=== PATIENT | female | born 1955 | race Caucasian/White ===

== ENCOUNTER 2016-06-18 09:03 | Day surgery (SDC) | payer OTHER ==
[~2016-06-18] VITALS: Ht 152.4 cm; Wt 70.7 kg
[~2016-06-18 09:03] MED LIST: BUSP15TA3 PO; CeFAZolin Inj 2 GM in IV Premix 1 EACH IV ONE; GABA800T2 PO; HYDR12.55 PO; IBUP800T28 PO; OXYC1TAB24 PO; PROG100C6 PO; PROP60CA2 PO; TRAM50TA2 PO; ZOLP10TA5 PO
[2016-06-18] MEDS ORDERED: fentaNYL-PF 50 mCg/mL 2 mL Inj ONE (09:04)
[2016-06-18] MEDS ORDERED: Ketamine 10 mg/mL 20 mL Inj ONE (09:04)
[2016-06-18] MEDS ORDERED: Propofol 10,000 mCg/mL 20 mL Inj ONE (09:04)
[2016-06-18] MEDS: Lactated Ringer's 1,000 ML IV SCH ×2 (09:41→09:46)
--- NOTE | 2016-06-18 09:41 | PCM.HPANE ---
Patient Data Date of Service: June 18, 2016 Surgeon Admitting Provider: Attending Provider:Jennifer Oh DPM Primary Care Physician:Tono Tomlinson PA-C Other Provider:Fam Shipman Anesthesia Reason for Visit Left Foot Exostosis Of Toe, Ganglion Cyst Ht/WT & BMI Height (Feet): 5 Weight (Kilograms): 68.49 Body Mass Index 29.00 Allergies Coded Allergies: latex (Verified Allergy, Unknown, 06/14/16) lithium (Verified Allergy, Unknown, blackouts, 06/14/16) Uncoded Allergies: EGGS (Allergy, Unknown, 06/14/16) Past Anesthesia History Anesthesia History: Denies:: Abnormal Airway, Anesthesia Reactions, Difficult Intubation, Fam Anesthesia Reaction Diabetes History Hx Diabetes?: No MRSA MRSA: Yes (18 years ago cervix after of child) Medications Hypertension Medication: Yes Home Meds Incl Beta Valentin: Yes (takes BP meds on a prn basis) Date Beta Valentin Taken: June 14, 2016 Previous Beta Valentin Dose >24: Dose Not Given, Contraindicated Beta Valentin Contraindicated: Other (takes prn, last dose >72h) Reported Medications oxyCODONE-Acetaminophen 5-325 mg 1 Each Tablet1-2 Tab PO Q4H PRN For Pain Ref 0 06/14/16 Zolpidem 10 Mg Xpejlh10 Mg PO HS PRN For Insomnia Ref 0 06/14/16 Tramadol 50 Mg Soepey021 Mg PO Q4H PRN For Pain Ref 0 06/14/16 Propranolol ER 60 Mg Cap.[id number] Mg PO DAILY PRN blood pressure 06/14/16 Progesterone,Micronized (Progesterone)100 Mg [id number] Mg PO DAILY 06/14/16 Ibuprofen 800 Mg Amgiba213 Mg PO TID PRN For Pain Ref 0 06/14/16 Hydrochlorothiazide 12.5 Mg Cdpwda53.5 Mg PO DAILY PRN blood pressure 30 Days Ref 0 06/14/16 Gabapentin 800 Mg Tablet4,000 Mg PO DAILY Ref 0 06/14/16 Buspirone 15 Mg Ijmzjp10 Mg PO BID Ref 0 06/14/16 Discontinued Reported Medications Eszopiclone (Lunesta)Unknown Strength TabletUnknown Dose PO HS PRN Insomnia 04/02/15 Estradiol Unknown Strength TabletUnknown Dose PO DAILY Ref 0 04/02/15 Progesterone,Micronized (Progesterone)Unknown Strength CapsuleUnknown Dose PO 2/21/16 Levothyroxine 100 Mcg Jqidje893 Mcg PO DAILY For Thyroid Replacement Ref 0 04/02/15 Tramadol 50 Mg Gqymbf16 Mg PO QID PRN For Pain Ref 0 04/02/15 Gabapentin Enacarbil (Horizant)600 Mg Tablet.er600 Mg PO DAILY 04/02/15 Discontinued Scripts oxyCODONE-Acetaminophen 5-325 mg 1 Each Tablet1-2 Tab PO Q6H PRN For Pain #25 TABLET Ref 0 Prov:Seng Esquivel MD 04/02/15 History History of ENT Problems?: No HEENT History: Denies:: Abnormal Airway Cataracts Difficult Intubation Dysphagia Glaucoma Hearing Problem Sinus Problem TMJ Denture Type: None Teeth Condition: Within Normal Limits Other HEENT Pertinent History: dental implant- post in place- no crown yet- Hx of Heart Problems?: Yes Cardiovascular History: Positive for:: Hypertension Denies:: Congestive Heart Failure Hx of Respiratory Problem?: Yes Respiratory History: Positive for:: Pneumonia (pneumonia last year ) Use of C-PAP Machine Denies:: Asthma COPD Emphysema Oxygen Administration Tuberculosis Hx Neurologic Problems?: Yes Neurological History: Positive for:: Headaches Denies:: Alzheimer's Disease CVA Dementia Dizziness Multiple Sclerosis Parkinson's Disease Seizures TIA Hx of GI Problems?: No Hx of Problems?: No Genitourinary History: Denies:: Kidney Stones Urinary Tract Infection Female Hx: Denies:: Currently (post menopausal) Skin History: Positive for:: History Skin Disorders? (hx of eduardo bilateral feet at age 5) Denies:: Pressure Ulcers Hx Musculoskeletal Problems?: Yes Musculoskeletal History: Positive for:: Fibromyalgia Musculoskeletal Trauma (left foot current admission problem) Denies:: Degenerative Joint Joint Replacement Myasthenia Gravis Systemic Lupus Hx of Psycho/Social Problems?: Yes Psycho Social History: Positive for:: Anxiety Bipolar Disorder Hx Depression Hx Surgeries?: Yes (c-sections; feet reconstruction, breast augmentation) Hx Any Other Health Problems?: Yes Other History: Denies:: Cancer Thyroid Disease History Blood Transfusions: Positive for:: Accept Blood Products? Blood Transfusions (after endometriosis bleed 20 years ago) Denies:: Blood Transfuse Reaction Hx Diabetes: No Hx Alcohol Use: No (former)Hx Substance Use: No Smoking Status: Unknown if Ever Smoker Have You Smoked inLast 12 mo: No Stop/Bang S-Snoring: Do You Snore Loudly: No T-Tired: feel tired, fatigued: No O-Obsered: Observed not breath: No P-Blood Pressure: treated: Yes B- Body Mass Index > 35 kg/m2: No A- Age over 50: Yes N- Neck Large Circumference: No G- Gender Male: No NATASHA Total Score: 2 NATASHA Risk Assessment: Low Risk, <3 Yes Risk Assessment Category Category 1A: Patient has history of documented sleep apnea, and HAS NOT received any narcotic, sedative or anesthesia administration during this stay. Category 1B: Patient has history of documented sleep apnea, and HAS received any narcotic , sedative or anesthesia administration during this stay Category 2: Patient has SUSPECTED Obstructive Sleep Apnea, and HAS received any narcotic , sedative or anesthesia administration during this stay. Category 3: Patient has SUSPECTED Obstructive Sleep Apnea and HAS NOT received narcotic, sedative or anesthesia administration during this stay. Category 4: Outpatient in Procedural Areas with known sleep apnea or who screen positive for High Risk via the STOP/BANG questionnaire. Exam Exam General Appearance: Alert, Oriented X3, Cooperative, No Acute Distress HEENT/AIRWAY: MP 2 Lungs: Clear to Auscultation, Normal Air Movement Heart: Exam Unremarkable, Regular Rate/Rhythm, No Murmurs/Rubs/Gallops Plan Impression Patient chart reviewed, patient interviewed and anesthestic plan with risks, benefits, and alternatives discussed, and informed consent obtained. NPO per Anesth. Guidelines: Yes ASA Physical Status: ASA2 Mod Systemic Disease Anesthetic Plan: MAC Bene/Risks/Altern/Consents: Yes HP Complete Prior to Induction: Yes Nolan Tsang MD June 18, 2016 09:41
[2016-06-18 09:44] VITALS: BP 160/80; PULSE 82; RESP 16; O2SAT 100
[2016-06-18] MEDS ORDERED: Lactated Ringer's 500 ML IV PRN (10:06)
[2016-06-18] MEDS ORDERED: Lactated Ringer's 1,000 ML IV SCH (10:06)
[2016-06-18] MEDS ORDERED: fentaNYL-PF 50 mCg/mL 2 mL Inj IVPUSH PRN (10:10)
[2016-06-18] MEDS ORDERED: Dexamethasone 4 mg/mL Inj IVPUSH PRN (10:10)
[2016-06-18] MEDS ORDERED: Phenylephrine 10,000 mCg/mL Inj IVPUSH PRN (10:10)
[2016-06-18] MEDS ORDERED: MetoCLOpramide 5 mg/mL 2 mL Inj IVPUSH PRN (10:10)
[2016-06-18] MEDS ORDERED: hydrALAZINE 20 mg/mL Inj IVPUSH PRN (10:10)
[2016-06-18] MEDS ORDERED: EPHEDrine Sulfate 50 mg/mL Inj IVPUSH PRN (10:10)
[2016-06-18] MEDS ORDERED: Atropine 0.4 mg/mL Inj IVPUSH PRN (10:10)
[2016-06-18] MEDS ORDERED: Ondansetron 2 mg/mL 2 mL Inj IVPUSH PRN (10:10)
[2016-06-18] MEDS ORDERED: Labetalol 5 mg/mL 4 mL Inj IV PRN (10:10)
[2016-06-18] MEDS ORDERED: HYDROmorphone 1 mg/mL Inj IVPUSH PRN (10:10)
[2016-06-18 10:40] VITALS: BP 161/83; PULSE 74; O2SAT 99
--- NOTE | 2016-06-18 10:46 | PCM.ANEP1 ---
Post Anesthesia Phase 1 PACU Phase 1 Assessment Date of Service: June 18, 2016 Vital Signs 36 161/83 73 18 99% ra Anesthetic Administered: MAC Level of Alertness: Awake, talking AUSTIN's with Equal Strength: Yes Pain: No Nausea or Vomiting: No Oxygen Delivery: Room Air Lungs: Clear to Auscultation, Normal Air Movement Complications: No Follow up Care: No Patient Instructions Provided: Yes Nolan Tsang MD June 18, 2016 10:46
[2016-06-18] MEDS ORDERED: OXYC1TAB24 PO (11:01)
[2016-06-18] MEDS ORDERED: oxyCODONE-Acetamin 5-325 mg Tablet PO PRN (11:05)
[2016-06-18 11:10] VITALS: BP 160/76; PULSE 63; O2SAT 100
--- NOTE | 2016-06-18 11:14 | PCM.PODPO ---
Podiatry Operative Report Date of Service: June 18, 2016 Date of Service June 18, 2016 Pre Operative Diagnosis Exostosis, left great toe stump, with underlying cyst formation Post Operative Diagnosis Exostosis, left great toe stump, with underlying cyst formation Procedure Exostectomy, left great toe stump, with excision of adhesions and soft tissue mass, plantar surface. Surgeon Surgeon: Jennifer Oh DPM Assistants: None Indication for Procedure Pain with weightbearing, excessive soft tissue adhesions, callus formation where skin is adhered to the distal portion of the proximal phalanx at the level of amputation. Findings Flexor hallucis longus adhesion with cystic and thickened scar tissue formation on the plantar aspect of the hallux stump. Details of Procedure The patient was identified in the preoperative holding area and brought back to the operating room. She was placed on the operating table in supine position. IV sedation was initiated, the timeout protocol completed, and the patient's name and site of surgery confirmed. The left foot was prepped and draped in usual aseptic manner. A local anesthetic was administered as a Kulkarni block to the left foot. No hemostasis was utilized. Bleeding vessels were cauterized where needed. An incision was made into semi-elliptical lines to excise the distal callus at the level of the proximal phalangeal head. The incision was carried down to the bone, incising ample scar tissue. The bony exostosis was excised sharply with a rongeur. Plantar to the exostosis, a soft tissue mass was identified, attached to the remaining flexor hallucis longus tendon, which was adhered to the bone in a bulbous formation. Some synovial fluid was released from this area. Portion of the soft tissue was sent for anthology to assess for type of tissue in order to provide a better prognosis to the patient for future recurrence. I used bone rasp to smooth the distal portion of the remaining proximal phalanx, irrigated the wound thoroughly, remodeled the flap of skin and subcutaneous soft tissue, and closed it and deep horizontals suture technique using 3-0 Prolene. Dressing consisted of Klein silk, normal saline moistened 4 x 4 gauze, Kerlix, latex free Kishan wrap. Bleeding was controlled with pressure and cauterization of bleeding vessels where necessary. Adequate perfusion was noted throughout the case. The patient was weaned off of IV sedation and taken today surgery with vital signs stable and vascular status to the left foot appearing intact. Grafts, Implants: None Complications There were no periprocedural complications identified. Condition Stable Anesthetic Administered: MAC Output, Estimated Blood Loss: 5 (ml) Blood Admin during surgery: No Surgical Cast or Splint: Post-op Boot Surgical Specimen Removed: Yes Specimen sent to Pathology: Yes Surgical Specimen description: Soft tissue mass for histologic examination Post Operative Plan The patient will be weightbearing, mostly on her heel, as instructed, in a postop shoe. Follow-up has been scheduled. Her was instructed on appropriate dressing change. He is to leave the current postoperative dressing intact and dry for at least 5 days, then remove, shower without scrubbing, and replace a light adhesive dressing. Sutures are expected to stay in 2-3 weeks. Jennifer Oh DPM June 18, 2016 11:13
--- NOTE | 2016-06-20 14:22 | PATH ---
SURGICAL PATHOLOGY Attending Physician:Jennifer Oh CASE STATUS: Signed Out PATIENT NAME: JOSEPH SU PID: [id number] : 1955 DATE COLLECTED:06/18/2016 16:46 SPECIMEN: Mass, NOS CLINICAL HISTORY: LEFT FOOT EXOSTOSIS 1). LEFT GREAT TOE SOFT TISSUE MASS FINAL DIAGNOSIS: 1.LEFT GREAT TOE, SOFT TISSUE MASS: FRAGMENT OF BONE AND SOFT TISSUE WITH REACTIVE CHANGES, CONSISTENT WITH EXOSTOSIS. NO EVIDENCE OF MALIGNANCY. ICD10: M25.775 GROSS DESCRIPTION: The specimen is received in one formalin filled container labeled with the patient's name, sublabeled "left great toe soft tissue mass" and consists of a light pink-kirk portion of tissue which measures 1.1 x 0.7 x 0.5 CM. The specimen is inked blue. The specimen is trisected and entirely submitted in one cassette. 06/18/2016 DAC MICRO DESCRIPTION: See diagnosis. ICD-9 CODES: CPT CODES: 37610 Electronically Signed Out India Dumont MD [facility] [address], [place] [address] Technical component performed at [facility], [address] [place] [address] Ave[address], [place], [address]
== END 2016-06-18 23:59 | disposition home or self-care (01) ==
LOC: SAS 09:03
PROVIDERS: ATTEND Podiatrist
DX: M25.775 Osteophyte, left foot (principal); M89.8X7 Other specified disorders of bone, ankle and foot; M79.672 Pain in left foot; I10 Essential (primary) hypertension; E78.5 Hyperlipidemia, unspecified; E03.9 Hypothyroidism, unspecified; G25.81 Restless legs syndrome; M79.7 Fibromyalgia; F31.9 Bipolar disorder, unspecified; F41.8 Other specified anxiety disorders; G47.33 Obstructive sleep apnea (adult) (pediatric); F17.210 Nicotine dependence, cigarettes, uncomplicated; Z86.010 Personal history of colon polyps; Z89.412 Acquired absence of left great toe
CPT/HCPCS: 28092; J0690; J2250; J3010; J7120